=== PATIENT | male | born 1990 | race Caucasian/White ===

== ENCOUNTER 2019-04-26 14:29 | Inpatient (IN) | payer MEDICAID ==
[~2019-04-26] VITALS: Ht 195.6 cm; Wt 99.6 kg
[2019-04-26 15:13] LABS: BASOPHILS # (AUTO) 0.01 x10^3/uL (0-0.1); BASOPHILS % (AUTO) 0 % (0-1); EOSINOPHILS # (AUTO) 0.03 x10^3/uL (0-0.4); EOSINOPHILS % (AUTO) 0 % (1-7); LYMPHOCYTES # (AUTO) 1.05 x10^3/uL (1-3.4); LYMPHOCYTES % (AUTO) 7 % (22-44); MD NO; MEAN CORPUSCULAR HEMOGLOBIN 31.9 pg (27.5-34.5); MEAN CORPUSCULAR HGB CONC 33.7 g/dL (33.2-36.2); MEAN CORPUSCULAR VOLUME 94.8 fL (81-97); MEAN PLATELET VOLUME 7.7 fL (7.4-10.4); MONOCYTES # (AUTO) 1.21 x10^3/uL (0.2-0.8); MONOCYTES % (AUTO) 9 % (2-9); NEUTROPHILS # (AUTO) 11.82 x10^3/uL (1.8-6.8); NEUTROPHILS % (AUTO) 84 % (42-75); PLATELET COUNT 262 x10^3/uL (130-400); RED BLOOD COUNT 4.83 x10^6/uL (4.38-5.82)
--- NOTE | 2019-04-26 15:16 | NUR ---
PT HAS CO OF TESTICULAR PAIN. PT WAS RECENTLY SEEN AND DC ON ABX. PT STATES SYMPTOMS HAVE NOT BEEN RELIEVED. PT STATES HIS LEFT TESTICLE IS FIRM AND SWOLLEN. PT AMBULATED STEADY TO BATHROOM. UA OBTAINED. VS STABLE. NOT IN ANY DISTRESS.
[2019-04-26 15:20] LABS: ALANINE AMINOTRANSFERASE 21 U/L (12-78); ALBUMIN 3.9 g/dL (3.4-5.0); ANION GAP 10 mmol/L (5-15); CALCIUM 9.2 mg/dL (8.5-10.1); CHLORIDE 106 mmol/L (98-107); CREATININE 0.93 mg/dL (0.7-1.3)
[2019-04-26 15:22] LABS: ALKALINE PHOSPHATASE 85 U/L (45-117); BILIRUBIN,TOTAL 1.2 mg/dL (0.2-1.0); TOTAL PROTEIN 8.1 g/dL (6.4-8.2)
[2019-04-26 15:30] LABS: MICROSCOPIC AUTO
[2019-04-26 15:33] LABS: CULTURE INDICATED? YES
[2019-04-26] MEDS: DOXYCYCLINE 100 MG in DEXTROSE 5% 250 ML IV SCH (16:57)
[2019-04-26] MEDS ORDERED: AZITHROMYCIN 500 MG in SODIUM CHLORIDE 0.9% 250 ML IV ONE (17:00)
[2019-04-26] MEDS ORDERED: CEFTRIAXONE PMX 1GM/50ML 50 ML IV ONE (17:00)
--- NOTE | 2019-04-26 17:18 | NUR ---
PT RESTING COMFORTABLE. MD AT BEDSIDE. IV ESTABLSIHED. MEDICATED PER MD ORDERS. PATIENT READY FOR ADMIT.
--- NOTE | 2019-04-26 17:48 | NUR ---
REPORT GIVEN TO KYLIE. PT RTG
[2019-04-26] MEDS ORDERED: CEFTRIAXONE PMX 1GM/50ML 50 ML ONE (17:50)
[2019-04-26 19:00] VITALS: BP 133/79
[2019-04-26] MEDS ORDERED: CLON2TAB PO (19:15)
[2019-04-26] MEDS ORDERED: TRAZ150T62 PO (19:15)
[2019-04-26] MEDS: OXYcodone/APAP 5/325MG TABLET PO PRN (20:00)
[2019-04-26] MEDS ORDERED: DOCUSATE 100 MG CAPSULE PO PRN (20:00)
[2019-04-26] MEDS ORDERED: ACETAMINOPHEN 325 MG TABLET PO PRN (20:00)
[2019-04-26] MEDS ORDERED: ONDANSETRON ODT 4 MG PO PRN (20:00)
[2019-04-26] MEDS: TRAZODONE 150MG TABLET PO SCH (23:23)
[2019-04-27] MEDS: OXYcodone/APAP 5/325MG TABLET PO PRN ×4 (00:13→21:45)
[2019-04-27 00:59] VITALS: BP 125/77
[2019-04-27] MEDS: DOXYCYCLINE 100 MG in DEXTROSE 5% 250 ML IV SCH ×3 (05:00→17:11)
[2019-04-27 05:13] LABS: ANION GAP 5 mmol/L (5-15); CALCIUM 9.2 mg/dL (8.5-10.1); CHLORIDE 105 mmol/L (98-107); CREATININE 0.98 mg/dL (0.7-1.3)
[2019-04-27] MEDS: CEFTRIAXONE PMX 2GM/50ML 50 ML IV SCH (05:24)
[2019-04-27 05:25] LABS: BASOPHILS # (AUTO) 0.02 x10^3/uL (0-0.1); BASOPHILS % (AUTO) 0 % (0-1); EOSINOPHILS # (AUTO) 0.09 x10^3/uL (0-0.4); EOSINOPHILS % (AUTO) 1 % (1-7); LYMPHOCYTES # (AUTO) 2.19 x10^3/uL (1-3.4); LYMPHOCYTES % (AUTO) 20 % (22-44); MD NO; MEAN CORPUSCULAR HEMOGLOBIN 31.7 pg (27.5-34.5); MEAN CORPUSCULAR HGB CONC 32.9 g/dL (33.2-36.2); MEAN CORPUSCULAR VOLUME 96.1 fL (81-97); MONOCYTES # (AUTO) 1.18 x10^3/uL (0.2-0.8); MONOCYTES % (AUTO) 11 % (2-9); NEUTROPHILS # (AUTO) 7.72 x10^3/uL (1.8-6.8); NEUTROPHILS % (AUTO) 69 % (42-75); PLATELET COUNT 257 x10^3/uL (130-400); RED BLOOD COUNT 4.65 x10^6/uL (4.38-5.82)
[2019-04-27 07:19] VITALS: BP 107/71
[2019-04-27 13:05] VITALS: BP 118/75
[2019-04-27] MEDS: KETOROLAC 30 MG/1 ML IVPush SCH ×2 (13:09→19:54)
[2019-04-27 19:44] VITALS: BP 118/80
[2019-04-27] MEDS: TRAZODONE 150MG TABLET PO SCH (23:07)
[2019-04-28] MEDS: KETOROLAC 30 MG/1 ML IVPush SCH ×3 (00:30→12:31)
[2019-04-28 01:23] VITALS: BP 115/73
[2019-04-28] MEDS: CEFTRIAXONE PMX 2GM/50ML 50 ML IV SCH (04:40)
[2019-04-28] MEDS: OXYcodone/APAP 5/325MG TABLET PO PRN ×2 (04:40→17:44)
[2019-04-28] MEDS: DOXYCYCLINE 100 MG in DEXTROSE 5% 250 ML IV SCH ×2 (05:27→14:57)
[2019-04-28 05:29] LABS: BASOPHILS # (AUTO) 0.04 x10^3/uL (0-0.1); BASOPHILS % (AUTO) 0 % (0-1); EOSINOPHILS # (AUTO) 0.24 x10^3/uL (0-0.4); EOSINOPHILS % (AUTO) 3 % (1-7); LYMPHOCYTES # (AUTO) 2.04 x10^3/uL (1-3.4); LYMPHOCYTES % (AUTO) 23 % (22-44); MD NO; MEAN CORPUSCULAR HEMOGLOBIN 32.1 pg (27.5-34.5); MEAN CORPUSCULAR HGB CONC 33.4 g/dL (33.2-36.2); MEAN CORPUSCULAR VOLUME 96.1 fL (81-97); MEAN PLATELET VOLUME 7.6 fL (7.4-10.4); MONOCYTES # (AUTO) 0.86 x10^3/uL (0.2-0.8); MONOCYTES % (AUTO) 10 % (2-9); NEUTROPHILS # (AUTO) 5.55 x10^3/uL (1.8-6.8); NEUTROPHILS % (AUTO) 64 % (42-75); PLATELET COUNT 255 x10^3/uL (130-400); RED BLOOD COUNT 4.35 x10^6/uL (4.38-5.82); RED CELL DISTRIBUTION WIDTH 12.5 % (9.4-14.8)
[2019-04-28 07:15] VITALS: BP 111/72
[2019-04-28] MEDS ORDERED: ACID1TAB3 PO (13:14)
[2019-04-28] MEDS ORDERED: IBUP-1222 PO (13:14)
[2019-04-28] MEDS ORDERED: CEFD300C37 PO (13:14)
[2019-04-28 13:26] VITALS: BP 134/89
== END 2019-04-28 18:00 | disposition home or self-care (01) | DRG 728 ==
LOC: ED 16:42 → 3NE 17:11 → ED 18:20
PROVIDERS: ADMIT Internal Medicine; ATTEND Internal Medicine
DX: N45.3 Epididymo-orchitis (principal); F13.20 Sedative, hypnotic or anxiolytic dependence, uncomplicated; G47.33 Obstructive sleep apnea (adult) (pediatric); F12.90 Cannabis use, unspecified, uncomplicated; D72.829 Elevated white blood cell count, unspecified
CPT/HCPCS: 36415; 76870; 80048; 80053; 81001; 83605; 85025; 87040; 87086; 87491; 87591; 96374; 99285; G0378; J0696; J1885; J7060

== ENCOUNTER → 2020-04-21 | Outpatient (CLI) | payer MEDICAID ==
[~2020-04-21] MED LIST: ACID1TAB3 PO; CEFD300C37 PO; CLON2TAB PO; IBUP-1222 PO; OMNIPAQUE 350 MG/ML, 100ML BOTTLE ONE; TRAZ150T62 PO
== END | disposition home or self-care (01) ==
LOC: CFH 11:12
PROVIDERS: ATTEND Internal Medicine Hematology & Oncology
DX: M41.85 Other forms of scoliosis, thoracolumbar region (principal); R59.1 Generalized enlarged lymph nodes
CPT/HCPCS: 71260; 74177; Q9967